=== PATIENT | female | born 1995 | race Caucasian/White ===

== ENCOUNTER 2016-12-08 08:36 | Emergency (ER) | payer OTHER ==
[~2016-12-08] VITALS: Ht 157.5 cm; Wt 130.2 kg
[~2016-12-08 08:36] MED LIST: AMOXICILLIN500 MG PO; BENTYL10 MG PO; COLACE100 MG PO; FLONASE16 G1 BOTH NARES; GABAPENTIN100 MG PO; GRALISE300 MG PO; HYDROCHLOROTH12.5 M3 PO; HYDROCHLOROTHIAZIDE; KLONOPIN0.5 M1 PO; LEVAQUIN500 MG PO; LORTAB 5-325 M1 EACH PO; MIRALAX17 GM PO; MOTRIN600 MG PO; NAPROSYN500 MG PO; NORCO 5/3251 TABLET PO; PROZAC40 MG PO; TRINESSA1 EACH PO; VICODIN 5-3001 EACH PO; ZOFRAN ODT4 MG PO; ZOFRAN4 MG PO; ZYRTEC10 M3 PO
[2016-12-08 10:25] LABS: ADD MIUA? YES; BILIRUBIN NEGATIVE; BLOOD MODERATE; COLOR YELLOW ((YELLOW)); GLUCOSE (STRIP) NEGATIVE; KETONES NEGATIVE; LEUKOCYTES NEGATIVE; NITRITE NEGATIVE; PROTEIN (STRIP) 30; UROBILINOGEN 0.2 MG/DL (0.2-1.0)
[2016-12-08 10:27] LABS: HEMATOCRIT 40.5 % (36.0-46.0); MCH 28.1 PG (29.0-34.0); MCHC 33.8 G/DL (30.0-36.0); MEAN PLAT.VOLUME 11.3 uM^3 (9.5-12.4); PLATELET COUNT 233 K/uL (156-360); RBC DIS.WIDTH-CV 13.2 % (11.8-14.6); RBC DIS.WIDTH-SD 40.1 % (39-53); RED BLOOD COUNT 4.88 M/uL (3.80-5.20)
[2016-12-08 10:32] LABS: BACTERIA RARE /HPF; EPITHELIAL CELLS RARE /HPF; MUCUS TRACE /LPF; RED BLOOD CELLS 0-5 /HPF (0-5); UCUL ADDED? NO; WHITE BLOOD CELLS 0-5 /HPF (0-5)
[2016-12-08 10:38] LABS: CHLORIDE 106 mEq/L (99-109); SODIUM 138 mEq/L (136-147)
[2016-12-08 10:40] LABS: GLUCOSE 111 mg/dL (70-99)
[2016-12-08 10:41] LABS: ANION GAP 12 MEQ/L (2-14)
[2016-12-08 10:42] LABS: TOTAL BILIRUBIN 0.4 mg/dL (0.0-1.0)
[2016-12-08 10:43] LABS: ALKALINE PHOSPHATASE 84 IU/L (3-129)
[2016-12-08 10:44] LABS: GFR ESTIMATE (CALCULATED) > 59 mL/min/
[2016-12-08 10:45] LABS: UREA NITROGEN (BUN) 14 mg/dL (9-23)
[2016-12-08 10:52] LABS: QUANTITATIVE HCG < 4.0 MIU/ML
[2016-12-08] MEDS ORDERED: FLAGYL500 MG PO (12:13)
[2016-12-08] MEDS ORDERED: CIPRO500 MG PO (12:13)
[2016-12-08] MEDS ORDERED: ZOFRAN4 MG PO (12:13)
[2016-12-08 12:36] VITALS: BP 146/77
== END 2016-12-08 12:37 | disposition home or self-care (01) ==
LOC: EME 08:36
DX: K52.9 Noninfective gastroenteritis and colitis, unspecified (principal)
CPT/HCPCS: 74177; 80053; 81003; 84702; 85027; 99281; 99285; J2405; J7030

== ENCOUNTER 2017-09-18 04:58 | Emergency (ER) | payer OTHER ==
[~2017-09-18] VITALS: Ht 157.5 cm; Wt 134.1 kg
[~2017-09-18 04:58] MED LIST changes: +CIPRO500 MG PO; +FLAGYL500 MG PO
[2017-09-18] MEDS ORDERED: ZITHROMAX Z-PA250 MG PO (06:41)
[2017-09-18 06:50] VITALS: BP 136/87
== END 2017-09-18 06:50 | disposition home or self-care (01) ==
LOC: EME 04:58
DX: J20.9 Acute bronchitis, unspecified (principal)
CPT/HCPCS: 99281; 99283